=== PATIENT | female | born 1945 | race Caucasian/White ===

== ENCOUNTER 2016-11-19 21:15 | Emergency (ER) | payer SELFPAY ==
[~2016-11-19] VITALS: Ht 154.9 cm; Wt 80.0 kg
[2016-11-19 21:38] VITALS: BP 149/57
== END 2016-11-19 22:38 | disposition left against medical advice (07) ==
LOC: ER 21:15
DX: K08.89 Other specified disorders of teeth and supporting structures (principal); Z53.21 Procedure and treatment not carried out due to patient leaving prior to being seen by health care provider